=== PATIENT | female | born 1930 | race Caucasian/White ===

== ENCOUNTER 2018-09-25 08:11 | Outpatient (CLI) | payer MEDICARE ==
[2018-09-25 11:04] LABS: Hemoglobin A1c 5.8 % (4.0-6.0)
[2018-09-25 11:09] LABS: #Lymphocytes 1.3 thou/uL (1.20-3.40); #Monocytes 0.3 thou/uL (0.11-0.59); #Neutrophils 7.8 thou/uL (1.40-6.50); %Basophils 0.1 % (0.0-1.0); %Eosinophils 0.4 % (0.0-10.0); %Lymphocytes 13.3 % (21.0-51.0); %Monocytes 3.1 % (0.0-10.0); %Neutrophils 83.2 % (42.0-75.0); ALT (SGPT) 9 U/L (8-55); AST (SGOT) 10 U/L (5-34); Albumin 4.6 g/dL (3.4-4.8); Alkaline Phosphatase 66 U/L (40-150); Anion Gap 14 mmol/L (10-20); BUN (Urea Nitrogen) 39 mg/dL (9.8-20.1); Bilirubin, Total 0.3 mg/dL (0.2-1.2); Calc. Creatinine Clearance 0 mL/min (70-130); Calcium 10.3 mg/dL (7.8-10.44); Carbon Dioxide 33 mmol/L (23-31); Cardiac Risk 4.7 (Less than 4.5); Chloride 100 mmol/L (98-107); Cholesterol 255 mg/dl (< 200 Desired); Estimated GFR-MDRD 39; Globulin 2.4 g/dL (2.4-3.5); Glucose 139 mg/dL (83-110); HDL Cholesterol 54 mg/dL (>60 Neg Risk); Hemoglobin 12.9 g/dL (12.0-16.0); LDL Cholesterol, Calculated 179 mg/dL; Mean Corpuscular HGB CONC 31.2 g/dL (32.0-36.0); Mean Corpuscular Hemoglobin 28.2 pg (27.0-31.0); Mean Corpuscular Volume 90.5 fL (78.0-98.0); Mean Platelet Volume 7.9 fL (7.4-10.4); Platelet Count 251 thou/uL (130-400); Potassium 5.5 mmol/L (3.5-5.1); RBC Distribution Width 13.1 % (11.5-14.5); Red Blood Cell (RBC) Count 4.56 mill/uL (4.20-5.40); Sodium 141 mmol/L (136-145); Triglycerides 109 mg/dL (Less than 150); White Blood Cell (WBC) Count 9.4 thou/uL (4.8-10.8)
--- NOTE | 2018-09-25 12:52 | RAD ---
CHEST 2 VIEWS: DATE: 09/25/2018. FINDINGS: No prior films are available for comparison. COPD is present with flattening of the diaphragm. There is clearly some baseline fibrotic change thr oughout the lungs. There is some relative increased density in the right lower lobe and there is [place] nting of the right costophrenic and posterior costophrenic sulci. I have a suspicion that this blunt ing is more apt to be due to chronic thickening than current pleural effusion, but in the absence of an old film, it is difficult to be certain. The heart size is normal. The vessels show no congestio n. IMPRESSION: 1. Chronic obstructive pulmonary disease with chronic fibrotic changes. 2. Blunt costophrenic sulci on the right. Effusion versus chronic scarring. My suspicion tips more towards the latter. 3. Some increased density in the right lower lobe. Cannot tell if this is chronic scarring or acute infiltrate on top of chronic change. COMMENT: Getting an old film, or even a prior report of an old chest film, if available for comparison, would be very helpful at sorting out what is new versus old. If that is not possible, then I would recomme nd at least a followup chest x-ray in a few days, and if the patient continues to worsen, then a CT m ight be helpful. POS: HOME
== END 2018-09-25 08:12 | disposition home or self-care (01) ==
LOC: BURRAD 08:11
PROVIDERS: ATTEND Nurse Practitioner Family
DX: R06.2 Wheezing (principal); R06.00 Dyspnea, unspecified; E78.5 Hyperlipidemia, unspecified; I10 Essential (primary) hypertension; E11.9 Type 2 diabetes mellitus without complications; R53.1 Weakness; R53.83 Other fatigue; J44.9 Chronic obstructive pulmonary disease, unspecified; J98.4 Other disorders of lung
CPT/HCPCS: 36415; 71046; 80053; 80061; 83036; 85025